=== PATIENT | female | born 1960 | race Caucasian/White ===

== ENCOUNTER 2016-08-02 07:49 | Day surgery (SDC) | payer OTHER ==
[~2016-08-02] VITALS: Ht 167.6 cm; Wt 59.0 kg
[~2016-08-02 07:49] MED LIST: 0.9% Sodium Chloride 1,000 ML IV SCH; OMEG300C3 PO; OMEP20CA11 PO; Sodium Chloride LOK Flush 10 mL Syringe IV PRN; TRAM50TA2 PO; fentaNYL-PF 50 mCg/mL 2 mL Inj IVPUSH PRN
[2016-08-02 08:07] VITALS: BP 119/86; PULSE 79; RESP 14; O2SAT 100
[2016-08-02 09:00] VITALS: BP 105/65; PULSE 77; RESP 16; O2SAT 100
[2016-08-02 09:13] VITALS: BP 96/66; PULSE 70; RESP 16; O2SAT 100
[2016-08-02 09:32] VITALS: BP 111/63; PULSE 78; RESP 16; O2SAT 100
--- NOTE | 2016-08-02 11:15 | ENDO ---
[address] [address] ENDOSCOPY PROCEDURE PATIENT: SCOT MANSFIELD : 1960 MR#: [id number] ADMIT: 08/02/2016 JOB ID: [id number] DATE: 08/02/2016 PROCEDURE: 1. Esophagogastroduodenoscopy with biopsy. 2. Colonoscopy with biopsy. PREOPERATIVE DIAGNOSIS(ES): Abdominal pain and diarrhea. POSTOPERATIVE DIAGNOSIS(ES): 1. Mild bile reflux. 2. Mild nonerosive gastritis. 3. Small internal hemorrhoids. 4. Failed colonoscopy. Could not reached the cecum due to her extreme number of loops of redundancy of the colon. ANESTHESIA: Fentanyl 175 mcg, Versed 9 mg IV administered. COMPLICATIONS: None. BLOOD LOSS: Minimal. DESCRIPTION OF PROCEDURE: After risks and benefits explained to the patient, informed consent was obtained. After anesthesia administered, an upper endoscope was inserted into the mouth, intubated into the esophagus, stomach, second portion of duodenum and mucosa carefully examined. After the procedure was done, the scope was withdrawn and procedure terminated. Colonoscope was inserted from the rectum to the ascending colon. Mucosa was carefully examined. Prep of the patient was excellent. After the procedure was done, the scope withdrawn and procedure terminated. FINDINGS: Upon inspection of the esophagus, no masses, ulcers, or lesions. Z-line located 40 cm from incisors. Upon entering the stomach, there was mild nonerosive gastritis was seen. It also showed some mild bile reflux. Retroflexion was normal, duodenal bulb, first portion. Biopsies taken at duodenum, antrum, body of stomach. Upon inspection of the anus, no masses, hemorrhoids, ulcers, or fissures were seen throughout the entire examination. There was a significant number loops of redundancy throughout the entire colon. The scope could only reach to the ascending colon. Biopsies taken of random colon to rule out microscopic colitis. Retroflexion showed small internal hemorrhoids. IMPRESSIONS: 1. Mild bile reflux. 2. Mild nonerosive gastritis. 3. Small internal hemorrhoids. 4. Extreme redundancy and loops of the colon. Could only reached the ascending colon. RECOMMENDATIONS: 1. Await pathology results. 2. Follow up in GI clinic with Jordan Anand PA-C. 3. Will refer to [facility]eng for repeat colonoscopy for failed colon.
--- NOTE | 2016-08-05 13:07 | PATH ---
SURGICAL PATHOLOGY Attending Physician:Jose E Amaya MD CASE STATUS: Signed Out PATIENT NAME: SCOT MANSFIELD PID: [id number] : 1960 DATE COLLECTED:08/02/2016 18:20 SPECIMEN: 1: Duodenum, Biopsy 2: Stomach, Antrum, Biopsy 3: Gastric, Biopsy 4: Colon, Biopsy CLINICAL HISTORY: 1). DUODENAL BIOPSY 2). ANTRUM BIOPSY 3). GASTRIC BODY BIOPSY 4). RANDOM COLON BIOPSY FINAL DIAGNOSIS: 1. Duodenal Biopsy: Fragments of normal appearing small bowel mucosa. Normal delicate mucosal villi present. Negative for significant inflammation, dysplasia and malignancy. 2. Antrum Biopsy: Mild chronic gastritis involving antral mucosa. Negative for evidence of Helicobacter. Negative for intestinal metaplasia. Negative for dysplasia and malignancy. 3. Gastric Body Biopsy: Mild chronic gastritis involving fundic mucosa Negative for evidence of Helicobacter. Negative for intestinal metaplasia. Negative for dysplasia and malignancy. 4. Random Colon Biopsy: Fragments of normal appearing colon mucosa. Negative for significant architectural distortion. Negative for significant inflammation, dysplasia and malignancy. ICD10 K29.70 GROSS DESCRIPTION: The specimen is received in four formalin filled containers labeled with the patient's name. 1). The specimen is sublabeled "duodenal" and consists of 2 portions of tissue which aggregate to 0.4 x 0.4 x 0.3 CM. The specimen is entirely submitted in cassette 1A. 2). The specimen is sublabeled "antrum" and consists of 2 portions of tissue which aggregate to 0.3 x 0.3 x 0.2 CM. The specimen is entirely submitted in cassette 2A. 3). The specimen is sublabeled "gastric" and consists of 2 portions of tissue which aggregate to 0.3 x 0.3 x 0.2 CM. The specimen is entirely submitted in cassette 3A. 4). The specimen is sublabeled "random colon" and consists of 5 portions of tissue which aggregate to 0.3 x 0.3 x 0.2 CM. The specimen is entirely submitted in cassette 4A. 08/02/2016 [facility] ICD-9 CODES: CPT CODES: 1: 55040 2: 87433 3: 15159 4: 27915 Electronically Signed Out Jose Antonio Saeed MD [facility]ly [facility] [address], [place] [address] Technical component performed at [facility], [address], [place], [address]
== END 2016-08-02 23:59 | disposition home or self-care (01) ==
LOC: END 07:49
PROVIDERS: ATTEND Internal Medicine Gastroenterology
DX: R19.7 Diarrhea, unspecified (principal); R10.84 Generalized abdominal pain; K29.50 Unspecified chronic gastritis without bleeding; K64.8 Other hemorrhoids; K21.9 Gastro-esophageal reflux disease without esophagitis; Z53.09 Procedure and treatment not carried out because of other contraindication
CPT/HCPCS: 43239; 45380; 99153; G0500; J2250; J3010; J7030